=== PATIENT | male | born 1955 | race Caucasian/White ===

== ENCOUNTER 2022-06-04 17:20 | Emergency (ER) | payer OTHER ==
[2022-06-04] MEDS ORDERED: Lorazepam 2 MG/ML VIAL ONE (17:27)
[2022-06-04] MEDS ORDERED: Ketamine 50 MG/ML (10ML VIAL) ONE (17:30)
[2022-06-04] MEDS ORDERED: Propofol 1,000 MG/100 ML VIAL IV ONE ×2 (17:40→21:02)
[2022-06-04 17:52] LABS: #Basophils 0.1 10x3/uL (0.0-0.2); #Eosinphils 0.4 10x3/uL (0.0-0.5); #Monocytes 1.5 10x3/uL (0.0-1.1); #Neutrophils 5.2 10x3/uL (1.5-8.4); %Eosinophils 3.2 % (0.0-6.0); %Lymphocytes 34.8 % (18.0-47.0); %Monocytes 13.1 % (0.0-10.0); %Neutrophils 47.3 % (40.0-75.0); Hemoglobin 14.8 g/dL (13.5-17.5); Mean Corpuscular Hemoglobin 30.3 pg (27.0-33.0); Mean Corpuscular Volume 97.5 fl (81.2-95.1); Mean Platelet Volume 10.2 fl (7.4-10.4); Platelet Count 322 10x3/uL (150-450); RBC Distribution Width 13.3 % (11.5-14.5); Red Blood Cell (RBC) Count 4.89 10x6/uL (4.32-5.72); White Blood Cell (WBC) Count 11.1 10x3/uL (3.5-10.5)
[2022-06-04 17:56] LABS: INR-International Normal Ratio 0.9; Prothrombin Time 10.2 sec (9.5-12.1)
[2022-06-04 18:01] LABS: ALT (SGPT) 96 U/L (8-55); AST (SGOT) 70 U/L (5-34); Albumin 4.5 g/dL (3.4-4.8); Alkaline Phosphatase 111 U/L (40-110); Anion Gap 34 mmol/L (10-20); BUN (Urea Nitrogen) 13 mg/dL (8.4-25.7); Bilirubin, Total 0.4 mg/dL (0.2-1.2); Calc. Creatinine Clearance 0 mL/min (70-130); Calcium 9.6 mg/dL (7.8-10.44); Carbon Dioxide 9 mmol/L (23-31); Chloride 102 mmol/L (98-107); Estimated GFR 75; Globulin 4.6 g/dL (2.4-3.5); Glucose 154 mg/dL (80-115); Potassium 4.7 mmol/L (3.5-5.1); Protein, Total 9.1 g/dL (5.8-8.1); Sodium 140 mmol/L (136-145)
[2022-06-04 18:06] LABS: PTT 21.4 sec (22.0-33.0)
[2022-06-04 18:14] LABS: Platelet Morphology Comment Appears Adequate; RBC Morphology Normal
[2022-06-04 18:38] LABS: Actual Bicarbonate (HCO3a) 9.1 mEq/L (22-28); Base Excess (BEa) -30.2 mEq/L (-2.0 to +3.0); CO2 Tension 84.6 mmHg (35.0-45.0); Calcium, Ionized (arterial) 1.41 mmol/L (1.12-1.30); Carboxyhemoglobin (COHb) 0.3 gm% (0.0-3.0); Hemoglobin (Hb) 16.8 g/dL (14.0-18.0); O2 Tension (PaO2), arterial 455.5 mmHg (> 80.0); Potassium - ABG Lab 4.3 mmol/L (3.70-5.30); Puncture Site RBA; pH, Arterial 6.65 (7.35-7.45)
[2022-06-04 19:19] LABS: Bilirubin Neg (Negative); Blood, Urine 50 (Negative); Clarity Slightly Cloudy (Clear); Glucose, Urine (Dipstick) Normal (Negative); Ketone, Urine Negative (Negative); Leukocyte Negative (Negative); Nitrite Negative (Negative); Protein, Urine (Dipstick) 100 mg/dl (Neg-Trace); Specific Gravity, Urine 1.025 (1.005-1.030); Urobilinogen Normal mg/dL (Less than 2)
[2022-06-04 19:27] LABS: Amphetamine Not Detected (NotDetected); Barbiturates Screen Not Detected (NotDetected); Benzodiazepine Screen Not Detected (NotDetected); Cocaine Metabolite Screen Not Detected (NotDetected); Methadone Not Detected (NotDetected); Methamphetamine Not Detected (NotDetected); Opiate Screen Not Detected (NotDetected); Oxycodone Screen Not Detected (NotDetected); Phencyclidine (PCP) Not Detected (NotDetected); THC/Cannabinoid Screen Not Detected (NotDetected); Tricyclic Screen Not Detected (NotDetected)
[2022-06-04] MEDS ORDERED: levETIRAcetam in NS 1,500 MG in Premix Bag 1 BAG IVPB SCH ×2 (20:00→21:15)
[2022-06-04] MEDS ORDERED: Sodium Bicarbonate 150 MEQ in Dextrose 5% in Water 1,000 ML IV SCH (20:00)
[2022-06-04 20:52] LABS: RBC/HPF 0-3 HPF (0-3); Squamous Epithelial 0-3 HPF (0-3); WBC/HPF 0-3 HPF (0-3)
[2022-06-04 20:53] LABS: Bacteria/HPF 1+ HPF (None Seen); Transitional Epithelial 0-3 HPF (None Seen)
[2022-06-04 22:44] LABS: SARS-CoV-2 NAA Rapid Test Not Detected (NotDetected)
== END 2022-06-05 00:18 | disposition short-term general hospital (02) ==
LOC: CSHERS 17:20
DX: E87.29 Other acidosis (principal); J96.90 Respiratory failure, unspecified, unspecified whether with hypoxia or hypercapnia; R56.9 Unspecified convulsions; E11.9 Type 2 diabetes mellitus without complications; Z79.84 Long term (current) use of oral hypoglycemic drugs; Z87.891 Personal history of nicotine dependence; Z20.822 Contact with and (suspected) exposure to COVID-19
CPT/HCPCS: 31500; 36556; 36600; 51702; 70450; 71045; 80053; 80306; 81003; 81015; 82805; 84484; 85025; 85610; 85730; 93005; 94002; 94760; 96365; 96366; 96368; 96374; 96375; 96376; J1953; J2060; J2704; J7070; U0002